=== PATIENT | male | born 1995 | race Caucasian/White ===

== ENCOUNTER 2017-09-20 00:11 | Emergency (ER) | payer SELFPAY ==
[2017-09-20 00:17] VITALS: BP 143/84; TEMP 98.6
[2017-09-20] MEDS ORDERED: TYLENOL W/COD1 UDTAB PO (01:13)
[2017-09-20 03:25] VITALS: PULSE 16
== END 2017-09-20 03:20 | disposition home or self-care (01) ==
LOC: COL.ER 00:11
DX: S52.101A Unspecified fracture of upper end of right radius, initial encounter for closed fracture (principal); V80.018A Animal-rider injured by fall from or being thrown from other animal in noncollision accident, initial encounter; Y92.89 Other specified places as the place of occurrence of the external cause
CPT/HCPCS: Q4050